=== PATIENT | female | born 1950 | race African-American/Black ===

== ENCOUNTER 2018-02-12 06:58 | Day surgery (SDC) | payer OTHER ==
--- NOTE | 2018-02-04 10:10 | HP ---
Admitting History and Physical - Primary Care Physician PCP: Berta Beach - Admission Chief Complaint: Left nipple discharge History of Present Illness: 67 year old postmenapausal female who underwent left retroareolar biopsy 2014 showing fragments of papilloma without atypia. 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 She is now ready for major duct excision left breast. Bilateral mammogram 08/2017 showed dense tissue and 2 left 3mm retroareolar densities birad) . Breast US 09/2107 right 2:00 1.1 cm complicated cys and additional subcentimeter cysts . Left breast 7:00 retroareolar .4 cm nodule unchanged. birad 2. continue survelance of left palpable retroareolar density unless excised. History Source: Patient Limitations to Obtaining History: No Limitations - Smoking History Smoking history: Never smoked Have you smoked in the past 12 months: No - Alcohol/Substance Use Hx Alcohol Use: No Home Medications - Allergies Allergies/Adverse Reactions: Allergies Allergy/AdvReac Type Severity Reaction Status Date / Time No Known Drug Allergies Allergy Verified 03/31/15 10:36 - Home Medications Home Medications: Ambulatory Orders NK [No Known Home Medication] 03/31/15 Family Disease History - Family Disease History Family Disease History: CA: Brother (prostate ca) Physical Examination Constitutional: Yes: No Distress Breast(s): Yes: Other (dense tissue bilaterally, palpable 3.0cm mass right breast 11:00 and left nipple is inverted and draining clear discharge.) Problem List - Problems (1) Intraductal papilloma of left breast Code(s): D24.2 - BENIGN NEOPLASM OF LEFT BREAST Assessment/Plan Left breast major duct excision with mammogram needle localization
[2018-02-11 13:14] VITALS: BMI 28.7
[2018-02-12] MEDS ORDERED: ONDANSETRON 4 MG/2 ML VIAL IVPUSH PRN ×2 (10:05→16:00)
[2018-02-12] MEDS ORDERED: oxyCODONE HCL 5 MG TABLET PO PRN (10:05)
[2018-02-12] MEDS ORDERED: IBUPROFEN 800 MG/8 ML IJ IVPB PRN (10:05)
[2018-02-12] MEDS ORDERED: LACTATED RINGERS SOLUTION 1,000 ML IV SCH (10:15)
[2018-02-12] MEDS ORDERED: ROPIVACAINE HCL 0.5% 30ML VIAL ONE (10:27)
[2018-02-12] MEDS ORDERED: DEXTROSE 5%-0.45% SALINE 1,000 ML IV SCH (10:30)
[2018-02-12] MEDS ORDERED: PROPOFOL 20 ML ONE (10:36)
[2018-02-12] MEDS ORDERED: MIDAZOLAM HCL 2 MG/2 ML SINGLE DOSE VIAL ONE (10:36)
[2018-02-12] MEDS ORDERED: LIDOCAINE HCL/PF 2% SDV 5ML VIAL ONE (10:36)
[2018-02-12] MEDS ORDERED: LIDOCAINE HCL 1%, 10 MG/ML (50 mL VIAL) IJ ONE (10:58)
[2018-02-12 12:30] VITALS: TEMP 98
[2018-02-12 14:35] VITALS: BP 152/84; PULSE 66
--- NOTE | 2018-02-13 21:11 | OP ---
DATE OF OPERATION: 02/12/2018 PREOPERATIVE DIAGNOSIS: Left intraductal papilloma and nipple discharge. POSTOPERATIVE DIAGNOSIS: Left intraductal papilloma and nipple discharge. PROCEDURE: Left partial mastectomy and major duct excision. SURGEON: Berta Beach MD PRODUCT SAFETY ADMINISTRATOR: NATALIE Hoffmann ANESTHESIA: General. ANESTHESIOLOGIST: SPECIMEN: Left breast tissue. DRAINS: None. INDICATION FOR PROCEDURE: The patient is a 67-year-old woman who had a biopsy in 2014 of a left retroareolar mass, which showed papilloma without atypia. She also had a history of nipple discharge; so, surgical excision was planned but then postponed. The discharge persisted, and the patient decided to go ahead with the procedure. DESCRIPTION OF PROCEDURE: The patient was taken to Breast Imaging where she underwent localization of the clip in the left breast. She was taken to the operating room and placed on the operating table in the supine position. The left breast was prepped and draped in the usual fashion. A timeout was performed. The skin was infiltrated with 1% lidocaine. An incision was made at the lower border of the areola. The tip of the localizing guidewire was easily felt. The incision was deepened, and the tissue was mobilized towards the tip of the needle. In addition, the tissue underneath the nipple was divided using electrocautery. The tissue was then removed, and a specimen radiograph showed the clip in the specimen. The wound was irrigated and inspected for hemostasis. Once this was satisfactory, the incision was closed. The deep tissue was reapproximated with interrupted sutures of 2-0 Vicryl. The dermis was closed with interrupted sutures of 2-0 Vicryl. The skin was closed with a running subcuticular closure of 4-0 Monocryl. The skin was infiltrated with ropivacaine prior to closure. The wound was cleaned and covered with Steri-Strips and then a sterile gauze dressing and a surgical bra. The specimen was placed in formalin and sent to Pathology. The patient tolerated the procedure well. At the end of the procedure, all sponge and instrument counts were correct. Edu [id number]
--- NOTE | 2018-02-16 10:06 | PATH ---
Surgical Pathology Report Patient Name: DIONICIO JUAREZ [facility]. Rec. #: [id number] /Age/Gender: 1950 (Age: 67) / F Account: [id number] Location: [facility] SUR[facility] Taken: 02/12/2018 Received: 02/12/2018 Reported: 02/16/2018 Physicians: Berta Beach M.D. Specimen(s) Received LEFT BREAST NEEDLE LOCALIZED WIDE EXCISION Clinical History Left intraductal papilloma Final Diagnosis LEFT BREAST NEEDLE LOCALIZED WIDE EXCISION: BREAST TISSUE WITH INTRADUCTAL PAPILLOMA, DUCT ECTASIA, APOCRINE METAPLASIA, CALCIFICATIONS, PERIDUCTAL CHRONIC INFLAMMATION, AND FIBROSIS. HEMORRHAGE SEEN AT PRIOR BIOPSY SITE. Electronically Signed Alejandra Matthew M.D. Gross Description Received in formalin, labeled "left breast needle localized wide excision," is a 3.5 x 2.3 x 0.9 cm. loving-yellow, irregular, portion of fibroadipose tissue with a needle localization wire present. There is a short suture marking the superior aspect and a long suture marking the lateral aspect, per the surgeon. There is no skin or nipple present. The specimen is inked as follows: Superior blue; inferior green; anterior and lateral red; medial yellow; deep black. The specimen is serially sectioned from anterior to deep. Sectioning reveals abundant dense, white fibrous tissue. There is a focus of hemorrhage containing a napier metallic biopsy clip, consistent with a previous biopsy site. No definitive mass is identified. The specimen is entirely and sequentially submitted in 8 cassettes with anterior margin in cassette 1 and the deep margin in cassette 8 (previous biopsy site in cassette 6). Total formalin fixation time: Approximately 6 hours 02/12/201802/12/2018
== END 2018-02-12 13:30 | disposition home or self-care (01) ==
LOC: JASU-SURG 06:58
PROVIDERS: ATTEND Surgery
PROC: 0HBU0ZZ Excision of Left Breast, Open Approach (ICD-10-PCS; principal; 2018-02-12 10:00)
DX: D24.2 Benign neoplasm of left breast (principal); N64.52 Nipple discharge
CPT/HCPCS: 19281; 88307-TC; 94760

== ENCOUNTER → 2018-10-26 | Day surgery (SDC) | payer OTHER ==
--- NOTE | 2018-10-27 00:48 | OP ---
DATE OF OPERATION: 10/26/2018 PREOPERATIVE DIAGNOSIS: Right breast mass, 10 o'clock, 4 cm from the nipple, and right breast mass, 10 o'clock, 3 cm from the nipple. PROCEDURE: Right ultrasound guided core biopsy with clip placement x2. ANESTHESIA: Local. ATTENDING SURGEON: Wong He M.D. ESTIMATED BLOOD LOSS: Minimal COMPLICATIONS: None PROCEDURE: Patient is made aware of the risks and benefits of the procedure and consented. She is placed in a supine position and under sterile conditions with 1% lidocaine for local anesthesia. A small lexi was made in the skin. The right 10 o'clock, 4-cm from the nipple nodule was approached first with a 10-gauge suction biopsy device via lateral approach under ultrasound guidance multiple cores were obtained. Likewise, under ultrasound guidance a U-shaped clip was placed into the biopsy region. The specimen was submitted for pathology. The right 10 o'clock 3-cm from the nipple nodule was then approached with additional anesthesia using the same incision. A 10-gauge suction biopsy device under ultrasound guidance was placed into the mass, and multiple cores were obtained and submitted to pathology. Likewise under ultrasound guidance, a bowtie clip was placed into the mass. Patient tolerated the procedure well. Steri-Strips and a sterile bandage were applied. Patient went for postprocedure mammogram. I will contact patient with these results. WONG HE M.D. [id number]
--- NOTE | 2018-10-27 17:40 | PATH ---
Surgical Pathology Report Patient Name: DIONICIO JUAREZ [facility]. Rec. #: [id number] /Age/Gender: 1950 (Age: 68) / F Account: [id number] Location: [facility] Taken: 10/26/2018 Received: 10/26/2018 Reported: 10/27/2018 Physicians: Edu Mixon M.D. Specimen(s) Received A: RIGHT BREAST 10:00 N4 B: RIGHT BREAST 10:00 N3 Clinical History Palpable mass Ultrasound findings: Highly suspicious/malignant Final Diagnosis A. RIGHT BREAST 10:00, 4 CM FN, BIOPSY: INVASIVE DUCTAL CARCINOMA, POORLY DIFFERENTIATED, MEASURING 0.8 CM IN GREATEST DIMENSION IN THIS SLIDE. DUCTAL CARCINOMA IN SITU (DCIS) PRESENT, INTERMEDIATE NUCLEAR GRADE. B. RIGHT BREAST, 10:00, 3 CM FN, BIOPSY: MUCINOUS CARCINOMA, INTERMEDIATE NUCLEAR GRADE, MEASURING 1.1 CM IN GREATEST DIMENSION IN THIS SLIDE. SEE COMMENT. Comment: The tumor is entirely comprised of mucinous carcinoma in this biopsy material. Reports for ER, DC, Her 2 and Ki-67 to follow Electronically Signed Alejandra Matthew M.D. Addendum Reported: 10/28/2018 Addendum Diagnosis Biomarkers for invasive ductal carcinoma, specimen A: Results of Estrogen Receptor (ER) and Progesterone Receptor (DC) studies performed on block "A1" at [facility] are as follows: ER (clone [id number] mouse monoclonal antibody by [employer]): 100% nuclear staining with strong intensity (Positive). DC (clone16 mouse monoclonal antibody by [employer]): 95% nuclear staining with strong and moderate intensity (Positive). Results of Her2 (IHC) & Ki-67 studies performed on this specimen at [place], [place] ([id number]) interpreted at [facility] are as follows: Her2 IHC (EP3 from [employer], formerly known as [id number], using [employer] Polymer Refine detection kit): Negative (0) Ki-67: 25% (intermediate proliferative index) Biomarkers for mucinous carcinoma, specimen B: Results of Estrogen Receptor (ER) and Progesterone Receptor (DC) studies performed on block "B1" at [facility] are as follows: ER (clone 6F11 mouse monoclonal antibody by [employer]): 100% nuclear staining with strong intensity (Positive). DC (clone16 mouse monoclonal antibody by [employer]): 80% nuclear staining with strong and moderate intensity (Positive). Results of Her2 (IHC) & Ki-67 studies performed on this specimen at [place], [place] ([id number]) interpreted at [facility] are as follows: Her2 IHC (EP3 from [employer], formerly known as [id number], using [employer] Polymer Refine detection kit): Negative (0) Ki-67: ~5% (low proliferative index) Positive and negative controls (internal if applicable) show appropriate results. Formalin fixation and cold ischemic times are within current ASCO/CAP Alejandra Matthew M.D. Gross Description A. Received in formalin labeled "right breast 10:00, 4 cmfn," are 6 loving-yellow, cylindrical portions of fibroadipose tissue ranging from 0.7-1.2 cm in length and averaging 0.1 cm in diameter. The specimens are submitted in toto in one cassette. B. Received in formalin labeled "right breast 10:00, 3cmfn," are 6 loving-yellow, cylindrical portions of fibroadipose tissue ranging from 0.6-1.5 cm in length and averaging 0.3 cm in diameter. The specimen is admixed with abundant brown mucinous material. The specimen is submitted in toto in one cassette. Time to formalin fixation: Less than one minute Total formalin fixation time: Approximately 9 hours. __ DL/10/26/2018 saudi10/26/2018
== END | disposition home or self-care (01) ==
LOC: FRADUS-SUR 08:25
PROVIDERS: ATTEND Surgery Surgical Oncology
PROC: 0HBT3ZX Excision of Right Breast, Percutaneous Approach, Diagnostic (ICD-10-PCS; principal; 2018-10-26)
DX: C50.411 Malignant neoplasm of upper-outer quadrant of right female breast (principal); D05.11 Intraductal carcinoma in situ of right breast; N63.11 Unspecified lump in the right breast, upper outer quadrant
CPT/HCPCS: 19083; 19084; 77065-TC; 87899; 88305-TC; 88342-TC; A4648

== ENCOUNTER 2018-12-15 08:25 | Day surgery (SDC) | payer OTHER ==
--- NOTE | 2018-12-04 16:12 | HP ---
Admitting History and Physical - Primary Care Physician PCP: Wong He - Admission Chief Complaint: right breast cancer History of Present Illness: 68 year old postmenapausal female with mammogram showing developing assymetry right upper outer quadrant. US right breast showed 2.5 cm microlobulated mass 10N3 and 1.5 cm irregular mass 10N4.US guided core bx 10/2018 showed right breast 10:004cmFN invasive ductal carcinoma and right breast 10:003 cm FN mucinous carcinomaER+/MO+ HER2-. Breast MRI 10/2018 showed newly diagnosed right breast cancer and no contralateral dz.no adenopathy Birad6. genetic testing revealed 3 VUS in MSH3 and AXIN2. History Source: Patient Limitations to Obtaining History: No Limitations - Past Surgical History Additional Past Surgical History: left breast major duct excision 01/2018 papilloma - Smoking History Smoking history: Never smoked Have you smoked in the past 12 months: No - Alcohol/Substance Use Hx Alcohol Use: No Home Medications - Allergies Allergies/Adverse Reactions: Allergies Allergy/AdvReac Type Severity Reaction Status Date / Time No Known Drug Allergies Allergy Verified 03/31/15 10:36 - Home Medications Home Medications: Ambulatory Orders Oxycodone HCl/Acetaminophen [Percocet 5-325 mg Tablet] 1 tab PO Q6H PRN #7 tablet MDD 4 02/12/18 Family Disease History - Family Disease History Family Disease History: CA: Brother (prostate ca 54) Physical Examination Vital Signs: no palpable masses or adenopathy bilaterally post bx changes right breast Constitutional: Yes: No Distress Breast(s): Yes: Other (no palpable masses or adenopathy bilaterally post biopsy changes right breast) Problem List - Problems (1) Breast cancer, right breast Code(s): C50.911 - MALIGNANT NEOPLASM OF UNSP SITE OF RIGHT FEMALE BREAST Qualifiers: Breast location: upper outer quadrant of breast Estrogen receptor status: positive Patient sex: female Qualified Code(s): C50.411 - Malignant neoplasm of upper-outer quadrant of right female breast; Z17.0 - Estrogen receptor positive status [ER+] Assessment/Plan Right breast wide excision ,mammogram needle localization, sentenel node biopsy ,lymphoscintogram ,possible axillary node dissection,reconstruction Dr Schmidt
[2018-12-08 11:06] VITALS: BMI 28.9
[2018-12-15] MEDS ORDERED: BUPIVACAINE HCL/PF 2.5 MG/ML - 30 ML VIAL IJ ONE (12:35)
[2018-12-15] MEDS ORDERED: ISOSULFAN BLUE 10 MG/ML VIAL SQ ONE (12:51)
[2018-12-15] MEDS ORDERED: ONDANSETRON 4 MG/2 ML VIAL IVPUSH PRN (14:17)
[2018-12-15] MEDS ORDERED: KETOROLAC TROMETHAMINE 30 MG/1 ML VIAL IVPUSH PRN (14:17)
[2018-12-15] MEDS ORDERED: DEXTROSE 5%-0.45% SALINE 1,000 ML IV SCH (14:30)
[2018-12-15] MEDS ORDERED: BUPIVACAINE HCL/PF 0.25% (2.5MG/ML) 10 ML VIAL IJ ONE (14:48)
--- NOTE | 2018-12-15 15:51 | OP ---
DATE OF OPERATION: 12/15/2018 PREOPERATIVE DIAGNOSIS: Right breast multifocal cancer. PROCEDURE: Right mammographically localized wide excision with central node biopsy. ANESTHESIA: General intubated. ATTENDING SURGEON: Matthias He MD FAMILY LIFE COUNSELOR: NATALIE Hoffmann ESTIMATED BLOOD LOSS: Minimal. COMPLICATIONS: None. DESCRIPTION OF PROCEDURE: The patient was made aware of the risks and benefits of the procedure and consented. She was placed in a supine position after going to radiology suite where 2 wires were placed next to the 2 lesions and then to nuclear medicine where a radiographic tracer was injected into the breast skin. After general anesthesia was induced, the patient was intubated. Then 3 mL of 1% Isosulfan Blue was locally infiltrated into the peritumor tissues. The operative site was prepped and draped in the usual sterile fashion. A curvilinear incision was made in the right axilla after waiting 10 minutes with gentle manual compression. Using electrocautery, the tissues were dissected down to the axillary fat where an obvious blue lymph node was identified, and this was surgically excised and found to be hot by Neoprobe. Investigation of the rest of the axilla visually revealed no blue lymph nodes. No suspicious lymph nodes were palpated, and no hot spots were identified on interrogation by Neoprobe. The wound was then copiously irrigated with normal saline, and a gauze was placed within it. The breast was approached next. A curvilinear periareolar incision was made from 3 o'clock to 9 o'clock superiorly with a radial incision extending. Using electrocautery, thick skin flaps were made to the wires, which the needles were withdrawn through the puncture sites and the wire through the wound. This identified 2 palpable breast cancers that were adjacent to each other. Using electrocautery, they were widely excised extending down all the way to the fascia of the pectoralis muscle. These were submitted with a short suture superior, long suture lateral. Specimen radiograph confirmed the presence of the indexed lesion. Additional segments were taken superior, inferior, medial, lateral, and anterior with clips at the new margin. No deep margins was taken since it was at the pectoralis muscle. The wound was copiously irrigated with normal saline. Hemostasis maintained by electrocautery. The procedure was turned over to Dr. Schmidt who did a primary reconstruction. He will dictate his portion of the procedure separately. MATTHIAS HE M.D. [id number]
[2018-12-15] MEDS ORDERED: oxyCODONE HCL 5 MG TABLET PO PRN ×2 (16:23)
[2018-12-15] MEDS ORDERED: LACTATED RINGERS SOLUTION 1,000 ML IV SCH (16:30)
[2018-12-15 18:30] VITALS: BP 137/75; PULSE 78; TEMP 97.6
--- NOTE | 2018-12-15 20:03 | OP ---
DATE OF OPERATION: 12/15/2018 TITLE OF PROCEDURE: 1. Right breast reconstruction of partial mastectomy defect using parenchymal flap mobilization. 2. Right axillary wound 4 cm complex closure. ATTENDING SURGEON: Maverick Schmidt M.D. SURGICAL SERVICES MANAGER: No assistants ANESTHESIA: General endotracheal anesthesia DESCRIPTION OF PROCEDURE: The procedure was performed in combination with a right-sided partial mastectomy performed by Dr. Wong He as well as a right-sided sentinel lymph node biopsy performed by Dr. Wong He. The patient was prepped and draped and positioned by Dr. He and his team. I am brought into the procedure after this for the reconstruction. Timeout had been called. Patient, procedure, incision site had been verified. The patient had been given a gram of Ancef preoperatively. She has ROBINSON hose and sequential compressive stockings in place. She is placed in supine position. After induction of general anesthesia, the procedure is commenced by Dr. Wong He and his team. My procedure commences upon the completion of the partial mastectomy and the sentinel lymph node biopsy. A large central defect on the breast just slightly superolateral to the nipple areolar complex is left. This is slightly less than 1/4 of breast volume. A large mobilization of tissue will be required to minimize the deformity. The hemostasis meticulously achieved under direct vision, after which parenchymal flaps are mobilized the entire width and height of the breast. The original defect is clipped sequentially in a clockwise fashion with 1 clip superiorly, 2 clips medially, 3 clips inferiorly, and 4 clips laterally. After this the mobilization is performed. The mobilized parenchymal flaps are secured to one another with a series of interrupted 2-0 Vicryl suture. As this created puckering of the skin, further mobilization was required in all quadrants of the breast, which allowed for further mobilization and minimizing of the defect. It was not entirely possible to eliminate the dimple on the superolateral quadrant. Additionally, because of the size of the defect in order to minimize the skin redundancy an excess ellipse of skin superior to the nipple areola is excised. The nipple areola is then able to be re-inset into the new pattern. A size 15 Shayne drain is brought out through an inframammary incision, secured with a 2-0 silk drain suture. The deep fatty capsule of the breast is then closed with a series of interrupted 3-0 Monocryl suture followed by a series of interrupted 3-0 buried deep dermal 3-0 Monocryl suture, followed by a running subcuticular 3-0 Monocryl suture. Patient is brought to a seated upright position to assure optimal contour of the breast and optimal symmetry which is achieved. The axillary wound has been addressed, the deep fascial tissue is closed with a series of interrupted 3-0 Vicryl suture. The dermis is approximated with a series of interrupted buried deep dermal 3-0 Monocryl suture followed by a running subcuticular 3-0 Monocryl suture. All tissues appear viable at the end of the procedure. Drain is placed to bulb suction. The dressings are applied with Steri-Strips, 4x4 gauze, ABD gauze, and a lightly compressive surgical brassiere. Patient is woken from anesthesia, transferred to recovery without complication. Edu [id number]
--- NOTE | 2018-12-18 17:45 | PATH ---
Surgical Pathology Report Patient Name: DIONICIO JUAREZ [facility]. Rec. #: [id number] /Age/Gender: 1950 (Age: 68) / F Account: [id number] Location: [facility] AMBULATORY Taken: 12/16/2018 Received: 12/16/2018 Reported: 12/21/2018 Physicians: Wong He M.D. Specimen(s) Received A: RIGHT AXILLARY SENTINEL LYMPH NODE B: RIGHT BREAST WIDE EXCISION C: RIGHT BREAST SUPERIOR MARGIN D: RIGHT BREAST INFERIOR MARGIN E: RIGHT BREAST MEDIAL MARGIN F: RIGHT BREAST LATERAL MARGIN G: RIGHT BREAST ANTERIOR MARGIN H: RIGHT BREAST ANTERIOR SKIN Clinical History Multicentric invasive Ca Final Diagnosis A. LYMPH NODE, RIGHT AXILLARY SENTINEL, EXCISION: METASTATIC CARCINOMA, INVOLVING ONE OF ONE LYMPH NODE (08/18). THE FOCUS OF METASTATIC CARCINOMA MEASURES 4 MM IN GREATEST DIMENSION (MACROMETASTASIS). NO EXTRANODAL EXTENSION IS IDENTIFIED. B. BREAST, RIGHT, WIDE EXCISION: TWO FOCI OF INVASIVE CARCINOMA: ONE FOCUS OF INVASIVE DUCTAL CARCINOMA, POORLY DIFFERENTIATED (TUBULE SCORE: 3/3, NUCLEAR GRADE: 2/3, MITOTIC SCORE: 3/3, TOTAL SCORE: 8/9, BETHEL, GRADE 3) MEASURING 1.6 CM IN GREATEST DIMENSION, MICROSCOPICALLY. ONE FOCUS OF MUCINOUS CARCINOMA, MODERATELY DIFFERENTIATED (TUBULE SCORE: 3/3, NUCLEAR GRADE: 2/3, MITOTIC SCORE: 1/3, TOTAL SCORE: 6/9, BETHEL GRADE 2) MEASURING 2.4 CM IN GREATEST DIMENSION, MICROSCOPICALLY. FOCAL DUCTAL CARCINOMA IN SITU (DCIS), CRIBRIFORM TYPE, INTERMEDIATE NUCLEAR GRADE WITH MODERATE NECROSIS. FLORID LOBULAR CARCINOMA IN SITU (LCIS), CLASSICAL AND PLEOMORPHIC TYPE WITH FOCAL NECROSIS. (SEE NOTE) THE FOCI OF INVASIVE CARCINOMA EXTEND TO THE ANTERIOR AND MEDIAL MARGINS AND ARE CLOSE TO (< 1 MM) THE SUPERIOR AND INFERIOR MARGINS. DCIS IS AT 4 MM FROM THE ANTERIOR MARGIN. SEE SPECIMENS C-H FOR FINAL MARGINS. LYMPHOVASCULAR INVASION IS IDENTIFIED. PRIOR BIOPSY SITE CHANGES ARE PRESENT. PATHOLOGIC STAGE (pTNM): pT2 (m) pN1a. SEE ALSO INVASIVE CARCINOMA CASE SUMMARY BELOW. Note: E-Cadherin immunostains (performed at [facility] on blocks B5,B7) demonstrate the absence of reactivity in the foci of LCIS. This finding supports the diagnosis. C. BREAST, RIGHT, SUPERIOR MARGIN, EXCISION: FLORID LCIS, PLEOMORPHIC AND CLASSICAL TYPE, WITH FOCAL NECROSIS AND FEW ASSOCIATED CALCIFICATIONS. (SEE NOTE) FLORID/PLEOMORPHIC LCIS IS AT 3 MM FROM THE CLOSEST NEW MARGIN. REMAINING BREAST TISSUE SHOWS FIBROCYSTIC CHANGES INCLUDING CYSTIC APOCRINE METAPLASIA AND STROMAL FIBROSIS. Note: E-Cadherin immunostains (performed at [facility] on block C6 & C7) demonstrate the absence of reactivity in the foci of LCIS. This finding supports the diagnosis. D. breast, right, inferior margin, excision: Benign breast tissue showing fibrocystic changes including cystic apocrine metaplasia, focal usual and papillary ductal hyperplasia and stromal fibrosis. E. breast, right, medial margin, excision: LCIS, classical type. Fibrocystic changes including cystic apocrine metaplasia (with cyst rupture and reaction), usual ductal hyperplasia and stromal fibrosis. F. breast, right, lateral margin, excision: Focal atypical lobular hyperplasia (ALH). Fibrocystic changes including cystic apocrine metaplasia and usual ductal hyperplasia. G. breast, right, anterior margin, excision: Mucinous carcinoma (8 mm), EXTENDING TOthe new margin along a broad front. H. skin, right breast, anterior, excision: Skin, with no pathologic findings. NEGATIVE FOR CARCINOMA. Comments Breast Invasive Carcinoma: Surgical Pathology Case Summary (Based on AJCC TNM 8 th edition) Procedure _X_ Excision (less than total mastectomy) Specimen Laterality _X_ Right Tumor Size Greatest dimension of largest invasive focus >1 mm (millimeters): 24 mm Histologic Type _X_ Invasive carcinoma of no special type (ductal, not otherwise specified) _X_ Mucinous carcinoma Histologic Grade (Bethel Histologic Score) Glandular (Acinar)/Tubular Differentiation _X_ Score 3 (<10% of tumor area forming glandular/tubular structures) Nuclear Pleomorphism _X_ Score 2 Mitotic Rate _X_ Score 1 _X_ Score 3 (two foci of carcinoma) Overall Grade _X_ Grade 2 (scores of 6 or 7) _X_ Grade 3 (scores of 8 or 9) (two foci of carcinoma) Tumor Focality _X_ Multiple foci of invasive carcinoma Number of foci: 2 Sizes of individual foci: 24 mm, 16 mm Ductal Carcinoma In Situ (DCIS) _X_ DCIS is present in specimen _X_ Negative for extensive intraductal component (EIC) Margins Invasive Carcinoma Margins _X_ Uninvolved by invasive carcinoma Distance from closest margin (millimeters): mucinous carcinoma extends to the new margin in specimen G; additional anterior skin is negative for carcinoma. DCIS Margins _X_ Uninvolved by DCIS Distance from closest margin (millimeters): 4 mm Closest margin: anterior (additional anterior margin G and anterior skin H are negative for DCIS) Regional Lymph Nodes _X_ Involved by tumor cells Number of Lymph Nodes with Macrometastases (>2 mm): 1 Number of Lymph Nodes with Micrometastases (>0.2 mm to 2 mm and/or >200 cells): 0 Number of Lymph Nodes with Isolated Tumor Cells (=0.2 mm and =200 cells): 0 Size of Largest Metastatic Deposit (millimeters): 4 mm Extranodal Extension: _X_ Not identified Treatment Effect _X_ No known presurgical therapy Lymphovascular Invasion _X_ Present Pathologic Stage Classification (pTNM, AJCC 8th Edition) Primary Tumor (Invasive Carcinoma) (pT) _X_ pT2 (m): Tumor >20 mm but =50 mm in greatest dimension Category (pN) _X_ pN1a (sn): Metastases in 1 to 3 axillary lymph nodes, at least 1 metastasis larger than 2.0 mm Biomarker Studies Biomarkers for invasive ductal carcinoma, poorly differentiated: Results of ER and UT)studies performed on prior biopsy (D1) at [facility] are as follows: ER (clone [id number] mouse monoclonal antibody by [employer]): 100% nuclear staining with strong intensity (positive). UT (clone16 mouse monoclonal antibody by [employer]): 95% nuclear staining with strong and moderate intensity (positive). Results of Her2 (IHC) & Ki-67 studies performed prior biopsy () at [place], [place] ([id number]) are as follows: Her2 IHC (EP3 from [employer], formerly known as [id number], using [employer] Polymer Refine detection kit): Negative (0). Ki-67: 25% (intermediate proliferative index). Biomarkers for mucinous carcinoma: Results of ER and UT studies performed on prior biopsy (D1) at [facility] are as follows: ER (clone 6F11 mouse monoclonal antibody by [employer]): 100% nuclear staining with strong intensity (Positive). UT (clone16 mouse monoclonal antibody by [employer]): 80% nuclear staining with strong to moderate intensity (Positive). Results of Her2 (IHC) & Ki-67 studies performed on prior biopsy ([id number])at [place], [place] ([id number]) are as follows: Her2 IHC (EP3 from [employer], formerly known as [id number], using [employer] Polymer Refine detection kit): Negative (0). Ki-67: ~5% (low proliferative index). Electronically Signed Iva Ivey M.D. Gross Description A. Received in formalin labeled "right axillary sentinel node," is a 1.8 x 1.3 x 0.6 cm lymph node with attached fat. The specimen is bisected and entirely submitted in 2 cassettes. B. Received in formalin, labeled "right breast wide excision," is a 5.0 x 4.8 x 3.8 cm. loving-yellow, irregular, portion of fibroadipose tissue with 2 needle localization wires present. There is a short suture marking the superior aspect and a long suture marking the lateral aspect, per the surgeon. There is no skin present. The specimen is inked as follows: superior and lateral blue; inferior green; medial yellow; anterior red; deep black. The specimen is serially sectioned from superior to inferior. Sectioning reveals a 1.6 x 1.5 x 1.3 cm loving,firm mass (mass #1) focally abutting the superior, anterior and medial margins. There is an additional 2.4 x 2.0 x 1.8 cm mucinous appearing mass (mass #2) focally abutting the anterior margin, 1 cm inferior to mass #1. Mass #2 is 0.1 cm from the inferior margin, 0.6 cm from the lateral margin and 0.9 cm from the medial margin. Program Supervisor sections are submitted in 10 cassettes as follows: 1-ful- face section of mass #1 with anterior and medial margins; 2-5-iejrbfwosg sections of mass #1 (each with anterior and medial margins); 4-mass #1 with superior margin; 5-full-face section of mass #2 with anterior margin; 6-mass #2 with anterior and lateral margins; 7-mass #2 with anterior and medial margins; 8-9-mass #2 with inferior margin; 10-deep margin. Time to formalin fixation: 25 minutes Total formalin fixation time: Approximately 28 hours. C. Received in formalin labeled "right breast superior margin," is a 3.8 x 3.2 x 1.6 cm portion of fibroadipose tissue with a clip marking the new margin, per the surgeon. The new margin is inked blue and the specimen is serially sectioned. The specimen is entirely and sequentially submitted in 8 cassettes. D. Received in formalin labeled "right breast inferior margin," is a 3.0 x 2.2 x 0.7 cm portion of fibroadipose tissue with a clip marking the new margin, per the surgeon. The new margin is inked blue and the specimen is serially sectioned. The specimen is entirely submitted in 3 cassettes. E. Received in formalin labeled "right breast medial margin," is a 4.0 x 2.0 x 1.3 cm portion of fibroadipose tissue with a clip marking the new margin, per the surgeon. The new margin is inked blue and the specimen is serially sectioned. The specimen is entirely and sequentially submitted in 6 cassettes. F. Received in formalin labeled "right breast lateral margin," is a 2.7 x 2.5 x 1.5 cm portion of fibroadipose tissue with a clip marking the new margin, per the surgeon. The new margin is inked blue and the specimen is serially sectioned. The specimen is entirely submitted in 3 cassettes. G. Received in formalin labeled "right breast anterior margin," is a 4.3 x 1.8 x 0.8 cm portion of fibroadipose tissue with a clip marking the new margin, per the surgeon. The new margin is inked blue and the specimen is serially sectioned. The specimen is entirely and sequentially submitted in 4 cassettes. H. Received in formalin labeled "right breast anterior skin," is a 5.0 x 0.7 cm brown, elliptical, unoriented portion of loving excised to a depth of 0.5 cm. The epidermal surface is unremarkable. Program Supervisor sections are submitted in 2 cassettes. DL12/16/2018 saudi12/16/2018
== END 2018-12-15 18:25 | disposition home or self-care (01) ==
LOC: FASU 08:25
PROVIDERS: ATTEND Surgery Surgical Oncology
PROC: 0HBT0ZZ Excision of Right Breast, Open Approach (ICD-10-PCS; principal; 2018-12-15 13:00)
PROC: 0HRT07Z Replacement of Right Breast with Autologous Tissue Substitute, Open Approach (ICD-10-PCS; 2018-12-15 13:00)
DX: C50.411 Malignant neoplasm of upper-outer quadrant of right female breast (principal); C77.3 Secondary and unspecified malignant neoplasm of axilla and upper limb lymph nodes; Z17.0 Estrogen receptor positive status [ER+]; N60.89 Other benign mammary dysplasias of unspecified breast; N60.12 Diffuse cystic mastopathy of left breast; N60.82 Other benign mammary dysplasias of left breast
CPT/HCPCS: 19281; 19282; 78195-TC; 94760; A9541

== ENCOUNTER 2019-01-05 09:41 | Day surgery (SDC) | payer OTHER ==
[2018-12-29 13:32] VITALS: BMI 28.7
--- NOTE | 2018-12-31 13:24 | HP ---
Admitting History and Physical - Primary Care Physician PCP: Wong He - Admission Chief Complaint: Right breast cancer S/P breast wide excision with positve anterior margin History of Present Illness: 68 year old postmenapausal female S/P right breast wide excision 12/16/2018 showing 2.4 cm mucinous ca and 1 cm IDC with positve anterior margin.1+/4 nodes . Needs re excision of positive margin and closure with Dr Schmidt. History Source: Patient Limitations to Obtaining History: No Limitations - Past Surgical History Additional Past Surgical History: MDE left papilloma 01/2018 Right breast wide excision 12/2017 for 2.4 cm mucinous and 1 cm IDC ER/HI+ HER2- 1+/4 nodes - Smoking History Smoking history: Never smoked Have you smoked in the past 12 months: No - Alcohol/Substance Use Hx Alcohol Use: No Home Medications - Allergies Allergies/Adverse Reactions: Allergies Allergy/AdvReac Type Severity Reaction Status Date / Time No Known Drug Allergies Allergy Verified 12/15/18 08:42 - Home Medications Home Medications: Ambulatory Orders Cholecalciferol (Vitamin D3) [Vitamin D3] 2,000 unit PO DAILY 12/08/18 Glucosa Joe 2Kcl/Chondroitin Joe [Glucosamine & Chondroitin Cap] 1 each PO DAILY 12/08/18 Lactobacillus Acidophilus [Probiotic] 1 each PO BID 12/08/18 Multivitamins [Multivit ([facility] Formulary)] 1 tab PO DAILY 12/08/18 Ascorbic Acid [Vitamin C] 1,000 mg PO DAILY 12/29/18 Family Disease History - Family Disease History Family Disease History: CA: Brother (prostate ca 54) Physical Examination Constitutional: Yes: Well Nourished Breast(s): Yes: Other (right breast incision healing well no signs of infection or hematoma) Problem List - Problems (1) Breast cancer, right breast Code(s): C50.911 - MALIGNANT NEOPLASM OF UNSP SITE OF RIGHT FEMALE BREAST Qualifiers: Breast location: upper outer quadrant of breast Estrogen receptor status: positive Patient sex: female Qualified Code(s): C50.411 - Malignant neoplasm of upper-outer quadrant of right female breast; Z17.0 - Estrogen receptor positive status [ER+] Assessment/Plan re excision of anterior margin right breast
[2019-01-05] MEDS ORDERED: PROPOFOL 20 ML ONE (14:34)
[2019-01-05] MEDS ORDERED: MIDAZOLAM HCL 2 MG/2 ML SINGLE DOSE VIAL ONE (14:35)
[2019-01-05] MEDS ORDERED: LIDOCAINE HCL/PF 2% SDV 5ML VIAL ONE (14:44)
[2019-01-05] MEDS ORDERED: ceFAZolin SODIUM 1 GM VIAL ONE (14:54)
[2019-01-05] MEDS ORDERED: DEXAMETHASONE SOD PHOSPHATE 4 MG/1 ML VIAL ONE (14:57)
[2019-01-05] MEDS ORDERED: ONDANSETRON 4 MG/2 ML VIAL ONE ×2 (14:57→16:28)
[2019-01-05] MEDS ORDERED: KETOROLAC TROMETHAMINE 30 MG/1 ML VIAL ONE (15:49)
[2019-01-05] MEDS ORDERED: ONDANSETRON 4 MG/2 ML VIAL IVPB PRN (16:10)
[2019-01-05] MEDS ORDERED: oxyCODONE HCL 5 MG TABLET PO PRN ×3 (16:10→16:12)
[2019-01-05] MEDS ORDERED: ONDANSETRON 4 MG/2 ML VIAL IVPUSH PRN (16:12)
[2019-01-05] MEDS ORDERED: PROMETHAZINE HCL 25 MG/1 ML VIAL IVPB PRN (16:12)
--- NOTE | 2019-01-05 16:14 | OP ---
Operative Note - Note: Operative Date: 01/05/19 Pre-Operative Diagnosis: right breast cancer Operation: local reconstruction of right mastectomy defect Findings: defect of right breast Post-Operative Diagnosis: Same as Pre-op Surgeon: Maverick Schmidt Anesthesia: General Operative Report Dictated: Yes
[2019-01-05] MEDS ORDERED: LACTATED RINGERS SOLUTION 1,000 ML IV SCH ×2 (16:15)
[2019-01-05 17:20] VITALS: TEMP 97.4
[2019-01-05 18:57] VITALS: PULSE 68
[2019-01-05 19:00] VITALS: BP 167/77
--- NOTE | 2019-01-06 09:20 | OP ---
DATE OF OPERATION: 01/05/2019 TITLE OF PROCEDURE: Revision of right-side breast reconstruction with rearrangement of parenchymal flaps. ATTENDING SURGEON: Isaiah Lux MD CITY SUPERVISOR: No assistants. ANESTHESIA: General endotracheal anesthesia. The patient was marked on the appropriate breast in the holding area. The procedures are performed in combination with a reoperative wide local excision of breast tissue performed by Dr. Wong He, that portion of the procedure will be dictated separately by Dr. Wong He. The patient was brought into the operating room and placed in a supine position. Position is carefully checked by surgical and anesthesia team. She received a g of Ancef preoperatively. A timeout was called. Patient, procedure, site, and side were verified. The previously closed periareolar incision is reopened by Dr. He, and his resection is performed as per his operative note. At the conclusion of his resection, my portion of the procedure commences. At this point, hemostasis is meticulously achieved, and pocket is copiously irrigated. Upon initial tailor tacking of the skin, it is determined that there is an unacceptable deformity given the superficial nature of the required resection. The tissues are reopened, and mobilization is performed. Tissue was mobilized from medial and lateral by undermining skin flaps and allowing the tissue to remain perfused by its deep blood supply. Inferiorly, underneath the areola leaving 1.5 cm pedicle for the areola inferiorly based central breast tissue is able to be mobilized and turned based on an inferior pedicle into the defect. This is then secured to the other mobilized tissue from medial and lateral with a series of interrupted 2-0 Vicryl suture. Hemostasis is meticulously achieved, and the pocket was copiously irrigated with normal saline. This mobilization of tissue allows for partial filling of the mastectomy defect. The skin is then repositioned and closed first with a series of interrupted buried deep dermal 3-0 Monocryl followed by a running subcuticular 3-0 Monocryl suture. The lateral 1 cm of the incision is left open to drain. The remainder of the wound is dressed with Steri-Strips, 4 x 4 gauze, Hypafix tape, ABD gauze, and a surgical bra. Patient awoken from anesthesia having tolerated the procedure well and transferred to recovery without complication. ISAIAH LUX M.D. [id number]
--- NOTE | 2019-01-06 10:30 | OP ---
DATE OF OPERATION: 01/05/2019 PREOPERATIVE DIAGNOSIS: Right breast cancer, status post partial mastectomy with positive anterior margin. POSTOPERATIVE DIAGNOSIS: Right breast cancer, status post partial mastectomy with positive anterior margin. PROCEDURE: Right partial mastectomy, excision of new anterior margin. ANESTHESIA: General intubated. ATTENDING SURGEON: Wong He MD ESTIMATED BLOOD LOSS: Minimal. COMPLICATIONS: None. DESCRIPTION OF PROCEDURE: Patient was made aware of the risks and benefits of the procedure and consented. She was placed in the supine position, and after general anesthesia was inducted, the patient was intubated. The operative site was then prepped and draped in the usual sterile fashion. The prior incision was then opened up revealing the anterior skin flap, which was bluntly taken away from the prior dissection. The tissue underneath the skin was then sharply excised revealing just a small amount of subcutaneous tissue. This large anterior segment measuring approximately 5 x 4 cm was then labeled with clips at the new margin and submitted to Pathology for permanent sectioning. The wound was copiously irrigated with normal saline. Hemostasis was maintained by electrocautery. The procedure was then turned over to the plastic surgeon, Dr. Schmidt, who will dictate his closure of the procedure separately. WONG HE M.D. [id number]
--- NOTE | 2019-01-12 11:30 | PATH ---
Surgical Pathology Report Patient Name: DIONICIO JUAREZ [facility] Rec. #: [id number] /Age/Gender: 1950 (Age: 68) / F Account: [id number] Location: [facility] AMBULATORY Taken: 01/05/2019 Received: 01/05/2019 Reported: 01/12/2019 Physicians: Wong He M.D. Specimen(s) Received RIGHT BREAST ANTERIOR SEGMENT Clinical History History of invasive carcinoma Final Diagnosis BREAST, RIGHT, ANTERIOR SEGMENT, EXCISION: INVASIVE DUCTAL CARCINOMA, 2 MM IN GREATEST MICROSCOPIC DIMENSION. FOCAL LOBULAR CARCINOMA IN SITU (LCIS), PLEOMORPHIC TYPE. INVASIVE CARCINOMA IS 3 MM FROM CLOSEST NEW MARGIN; LCIS IS 2 MM FROM CLOSEST NEW MARGIN. CHANGES OF PRIOR BIOPSY PRESENT. SEE COMMENT. Comment: Two small foci of invasive carcinoma juxtaposed with prior biopsy site changes are noted. One foci is associated with mucin. Immunohistochemical stains performed and interpreted at [facility] for AE1/3 and E-cadherin is positive in the invasive carcinoma. 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 Performed E-cadherin stain in this focus in non-contributory, since focus is no longer present in deeper sections. Prior materials are noted. Findings discussed with Monisha from Dr. He's office. Electronically Signed Lula Tate M.D. Gross Description Received in formalin, labeled "right breast anterior segment, clips at new margin" is 5.0 x 4.0 x 1.0 cm. loving-yellow, portion of fibroadipose tissue. There are three clips at one side designated as new margin. This new margin is inked blue. The specimen is serially sectioned and entirely submitted in 9 cassettes. Time to formalin fixation: 5 minutes Total formalin fixation time: 28 hours. DARIO/01/07/2019 chris/01/07/2019
== END 2019-01-05 18:45 | disposition home or self-care (01) ==
LOC: FASU 09:41
PROVIDERS: ATTEND Surgery Surgical Oncology
PROC: 0HBT0ZZ Excision of Right Breast, Open Approach (ICD-10-PCS; principal; 2019-01-05 14:57)
PROC: 0JX60ZB Transfer Chest Subcutaneous Tissue and Fascia with Skin and Subcutaneous Tissue, Open Approach (ICD-10-PCS; 2019-01-05 14:57)
DX: C50.411 Malignant neoplasm of upper-outer quadrant of right female breast (principal); Z17.0 Estrogen receptor positive status [ER+]
CPT/HCPCS: 88304-TC; 88307-TC; 88341-TC; 88342-TC; 94760

== ENCOUNTER 2020-04-26 06:48 | Day surgery (SDC) | payer OTHER ==
[2020-04-26] MEDS ORDERED: DEXAMETHASONE SODIUM PHOSPHATE 10 MG in SODIUM CHLORIDE 50 ML IVPB ONE (09:30)
[2020-04-26] MEDS ORDERED: PALONOSETRON HCL 0.25 MG/5 ML VIAL IVPUSH ONE (09:30)
[2020-04-26] MEDS ORDERED: FOSAPREPITANT DIMEGLUMINE 150 MG in SODIUM CHLORIDE 145 ML IVPB ONE (09:30)
[2020-04-26] MEDS ORDERED: CYCLOPHOSPHAMIDE INJECTION 1,040 MG in SODIUM CHLORIDE 250 ML IVPB ONE (10:00)
[2020-04-26 10:20] LABS: BASO % 1.1 % (0-2.0); EOS % 3.3 % (0-4.5); HEMATOCRIT 39.8 % (32.4-45.2); HEMOGLOBIN 13.1 GM/dL (10.7-15.3); LYMPH % 27.3 % (8-40); MCH 28.6 pg (25.7-33.7); MCHC 32.8 g/dl (32.0-36.0); MEAN CELL VOLUME 87.2 fl (80-96); MEAN PLT VOLUME 7.7 fl (7.5-11.1); MONO % 13.7 % (3.8-10.2); NEUT % 54.6 % (42.8-82.8); PLATELET COUNT 555 K/MM3 (134-434); RBC 4.56 M/mm3 (3.60-5.2); RDW 15.5 % (11.6-15.6); WHITE BLOOD COUNT 2.6 K/mm3 (4.0-10.0)
[2020-04-26] MEDS ORDERED: METHOTREXATE SODIUM/PF 25 MG/ML VIAL IVPUSH ONE ×2 (10:30→14:00)
[2020-04-26] MEDS ORDERED: FLUOROURACIL 2,500 MG/50 ML VIAL IVPUSH ONE ×2 (10:45→14:00)
[2020-04-26 10:55] LABS: ALBUMIN 3.7 g/dl (3.4-5.0); BILIRUBIN,TOTAL 0.4 mg/dL (0.2-1); CALCIUM 9.4 mg/dL (8.5-10.1); CREATININE 0.7 mg/dL (0.55-1.3); POTASSIUM 4.4 mmol/L (3.5-5.1); TOT PROT 7.1 g/dl (6.4-8.2)
[2020-04-26] MEDS ORDERED: SODIUM CHLORIDE 500 ML IV ONE (11:00)
[2020-04-26] MEDS ORDERED: CYCLOPHOSPHAMIDE INJECTION 780 MG in SODIUM CHLORIDE 250 ML IVPB ONE (13:30)
[2020-04-26 16:02] VITALS: BP 143/88; PULSE 67; TEMP 98.5
[2020-04-26] MEDS ORDERED: PORTA CATH FLUSH 10 ML IVPUSH ONE (16:12)
== END 2020-04-26 15:30 | disposition home or self-care (01) ==
LOC: JONCCHEMO 06:48
PROVIDERS: ATTEND Internal Medicine Hematology & Oncology
PROC: 3E04305 Introduction of Other Antineoplastic into Central Vein, Percutaneous Approach (ICD-10-PCS; principal; 2020-04-26)
PROC: 3E043GC Introduction of Other Therapeutic Substance into Central Vein, Percutaneous Approach (ICD-10-PCS; 2020-04-26)
PROC: 3E0437Z Introduction of Electrolytic and Water Balance Substance into Central Vein, Percutaneous Approach (ICD-10-PCS; 2020-04-26)
DX: Z51.11 Encounter for antineoplastic chemotherapy (principal); C50.919 Malignant neoplasm of unspecified site of unspecified female breast
CPT/HCPCS: 36415; 80053; 85025; 86300; 96361; 96367; 96375; 96413; J1453; J2469; J9070; J9260